=== PATIENT | female | born 1990 | race Caucasian/White ===

== ENCOUNTER 2019-02-24 16:00 | Outpatient (RCR) | payer OTHER, SELFPAY ==
--- NOTE | 2019-01-27 17:42 | HP.PTEVAL_ITS ---
Patient's Visit Information BOZENA FLORES is a 28 year old F referred to Physical Therapy by Enzo Rolle with a diagnosis of ACHILLES TENDONITIS OF LOWER EXTREMITY,RADICULOPATHY OF LEG,SI JOINT PAIN. Date of Evaluation: 01/27/19 Physical Therapist: José Beyer, PT, Cert MDT, OCS - Visit Plan Frequency: 1x/Week Duration: 4 Weeks Plan: PT INTERVENTIONS ANR STRETCHING,CALF STRETCHING,MANUAL THERAPY STM/STICK/STM/STRENGTHENING AND MODLATIES NEEDED - Subjective Findings: This 28 y/o female presents to physical therapy with achilles tendonitis and radiculopathy . Patient had 2011 throwing hand granade felt pain/strain in left achilles . In past tried PT for achilles pain. Tried cortizone injection in past. August 2018 fell on right sidethen had symptoms right leg,then noticed tingling/parathesia left leg.Most recently,seen DR to try PT again thought maybe radiculopathy.Patient in [employer] on [employer] no running. Tender achilles. Currently,parathesia toes absent in legs. Aggravates standing ,walking ,standing ,unable to run. Bending/lifting/sitting no symptoms. Coughing/straining/sneezing -.Sleeping good. Bowel/bladder,.Patient uses fabricated orthotics. Symptoms affects ability in [employer],job demands. Condtion affects QOL and function. VOCATION: [employer]. SOCAIL: - Pain Left Ankle Pain Intensity (Out of 10): 3 Pain Intensity Range: 10 - Objective POSTURE: normal arch. GAIT: normal shahbaz. SYMMTRIES: align. PALPATION: unremarkable. MMT: quads/hams 4/5,ankle 4/5 ,hip flexion 4/5. LUMBAR ROM: flexion WFL,extension min loss side glides min loss increase tingling /parathesia in foot. FLEXABLITY: hams min loss ,G-S WFL - Special Tests L/S Slump test left side: Positive L/S Slump test right side: Negative L/S Left Straight Leg Raise: Positive L/S Right Straight Leg Raise: Negative Lumbar Standing: Flexion - Mechanical Response: No effect Lumbar Standing: Flexion - Symptoms During Testing: Increases Lumbar Standing: Flexion - Symptoms After Testing: Worse Comments:: parathesia/tingling Lumbar Standing: Extension - Symptoms During Testing: Increases Lumbar Standing: Extension - Symptoms After Testing: No worse Lumbar Lying: Flexion - Mechanical Response: No effect Lumbar Lying: Flexion - Symptoms During Testing: No effect Lumbar Lying: Flexion - Symptoms After Testing: No effect Lumbar Lying: Extension - Mechanical Response: No effect Lumbar Lying: Extension - Symptoms During Testing: Increases Lumbar Lying: Extension - Symptoms After Testing: No worse - Goals Goal 1:: Patient Independant with HEP. Goal Time Frame: 4-6 Weeks Goal 2:: Patient to decrease symptoms by 50 % or greater with parathesia/tingling and pain foot to improve function. Goal Time Frame: 4-6 Weeks Goal 3:: Patient improve walking standing with min symptoms with min limiations. Goal Time Frame: 4-6 Weeks Goal 4:: Patient to improve ability with job demands and housework tasks with min limiations. Goal Time Frame: 4-6 Weeks Goal 5:: Patient to improve LFES score by 5 points or greater. Goal Time Frame: 4-6 Weeks - Rehabilitation Potential Physical Therapy Diagnosis: This patient has multile complexity issue with achilles tendonitis along with + signs with ANR with parathesia/tingling in foot with diffential diagnosis of lumbar radiculopathy along with tender achilles with certain activity thus benifit froms skilled PT. Rehabilitation Potential: Good - Anticipated Interventions Patient/Client Instruction: Educate patient on: Condition, Plan of Care For the Purpose of:: To decrease pain, To increase ROM, To improve muscle performance and motor function, To increase tolerance to activity/condition/position, To improve performance and independence with ADL's, To improve health of tissue, To decrease soft tissue restriction, To reduce risk of recurrence, To improve ability to perform tasks related to life management Therapeutic Exercise to Include: Strength training, Postural training, Flexibilty training, Active ROM For the Purpose of:: To decrease pain, To increase ROM, To improve muscle performance and motor function, To increase tolerance to activity/condition/position, To improve ability of physical actions for home/community/work/leisure, To improve health of tissue, To decrease soft tissue restriction, To increase flexibility/ROM, To reduce risk of recurrence, To improve ability to perform tasks related to life management TENS: Yes IF ES: Yes Thermo therapy (hot pack): Yes Ultrasound (thermal/non thermal): Yes For the Purpose of:: To decrease pain, To decrease swelling/inflammation, To improve health of tissue, To decrease soft tissue restriction, To increase flexibility/ROM, To improve ability to perform tasks related to life management Thank you for the opportunity to evaluate your patient. For Medicare and Medicare HMO plans, please review the plan of care and approve it. It will need to be FAXED BACK to us at [phone] for Medicare purposes. For Medicare only, by signing this I certify the plan of care. Please let me know if there are questions or concerns regarding this plan of care. Physician Signature: Date:
--- NOTE | 2019-04-18 12:58 | HP.PTDCNRP_ITS ---
HP - Discharge Summary (1) - Patient Information BOZENA FLORES was seen in my office for initial evaluation on 01/27/19. The following Plan of Care was established for this patient: Initial Frequency: 1x/Week Initial Duration: 4 Weeks - Anticipated Interventions Patient/Client Instruction: Educate patient on: Condition, Plan of Care For the Purpose of:: To decrease pain, To increase ROM, To improve muscle perfo rmance and motor function, To increase tolerance to activity/condition/position, To improve performance and independence with ADL's, To improve health of tissue, To decrease soft tissue restriction, To reduce risk of recurrence, To improve ability to perform tasks related to life management Therapeutic Exercise to Include: Strength training, Postural training, Flexibilty training, Active ROM For the Purpose of:: To decrease pain, To increase ROM, To improve muscle performance and motor function, To increase tolerance to activity/condition/position, To improve ability of physical actions for home/community/work/leisure, To improve health of tissue, To decrease soft tissue restriction, To increase flexibility/ROM, To reduce risk of recurrence, To improve ability to perform tasks related to life management TENS: Yes IF ES: Yes Thermo therapy (hot pack): Yes Ultrasound (thermal/non thermal): Yes For the Purpose of:: To decrease pain, To decrease swelling/inflammation, To improve health of tissue, To decrease soft tissue restriction, To increase flexibility/ROM, To improve ability to perform tasks related to life management This patient was last seen in our office 02/24/19. Pertinent comments regarding their Physical therapy will appear below: Patient was seen for PT for ACHILLES TENONITIS AND LUMBAR RADICULOPATHY for flexablity,flossing,stretching/strengthening,keira ex's . Patient was d/c to [facility] for further diagnostics. At this point I will be discontinuing this patient from physical therapy. I would be happy to see this patient again in the future if found appropriate by the physician. Thank you! José Beyer, PT, Cert MDT, OCS
== END 2019-02-24 19:00 | disposition home or self-care (01) ==
LOC: PT 16:00
PROVIDERS: Family Provider Internal Medicine; PCP Internal Medicine
DX: M76.62 Achilles tendinitis, left leg (principal); M53.3 Sacrococcygeal disorders, not elsewhere classified
CPT/HCPCS: 97014; 97035; 97110; 97140; 97161; G0283

== ENCOUNTER 2019-05-15 17:25 | Outpatient (RCR) | payer OTHER, SELFPAY ==
--- NOTE | 2019-05-15 18:55 | HP.PTEVAL ---
Patient's Visit Information BOZENA FLORES is a 28 year old F referred to Physical Therapy by Chema Bustos MD with a diagnosis of Lumbar radiculitis. Date of Evaluation: 05/15/19 Physical Therapist: Alexander Wilder DPT, OCS, CSCS - Visit Plan Frequency: 1-2x /Week Duration: 4-6 Weeks Plan: weekly x 4-6 for. 1. Leia progression to hep with tingling in legs and LB ext progression. 2. Progress to strength and remodelling as appropriate. 3. ext mobs and LB ROM ext bias, may need to go aterally. - Subjective Findings: L foot hurts and goes numb adn tingles since October. Tingles constantly since October. has shooting pain in L leg intermittently. 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 Central 3/. 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 pain is better in am and worse after a day of driving. Drives 5 days a week. Spends day doing housework adn can do it. Avoids walking fast for fitness as she needs to do this for training. More relief with bending, coughing adn sneezing do not bother her. - Pain LBP Pain Intensity (Out of 10): 3 Pain Intensity Range: 3, 6 - Objective Waks normal but some stiffness ins pine. Trasnfers safe adn normal. + L SLR adn slump. reflexes 2/3 patella and achilles. Sensation normal to gross light touch in LE. Strength LE 4/5 except HS and abd L 4-. L/S ext min limted and pressure, flexion is slight pain, B SB Ok with some pain. PPU creates tingling adn pressure in LB during, NE after. stadning flexion. NE during, Creates LBP and minimizes extension. - Goals Goal 1:: No tingly in L foot for 1 week Goal Time Frame: 4-6 Weeks Goal 2:: I appropriate HEP to minimize future problems and show proper posture. Goal Time Frame: 4-6 Weeks Goal 3:: Full LB AROM without pain. Goal Time Frame: 4-6 Weeks Goal 4:: Work without increased leg symptoms. Goal Time Frame: 4-6 Weeks Goal 5:: Jog without symptoms. Goal Time Frame: 4-6 Weeks - Rehabilitation Potential Physical Therapy Diagnosis: Lumbar radiculaopathy. Rehabilitation Potential: Fair - Anticipated Interventions Patient/Client Instruction: Educate patient on: Condition, Plan of Care For the Purpose of:: To decrease pain, To increase tolerance to activity/condition/position, To improve ability of physical actions for home/community/work/leisure Therapeutic Exercise to Include: Strength training, Passive ROM, Active ROM, Dynamic Lumbar Stabilization, Leia Exercises For the Purpose of:: To decrease pain, To improve nutrient delivery to tissue, To improve muscle performance and motor function, To increase tolerance to activity/condition/position, To improve ability of physical actions for home/community/work/leisure Manual Therapy Techniques to Include: Mobilization For the Purpose of:: To increase ROM Thank you for the opportunity to evaluate your patient. For Medicare and Medicare HMO plans, please review the plan of care and approve it. It will need to be FAXED BACK to us at [phone] for Medicare purposes. For Medicare only, by signing this I certify the plan of care. Please let me know if there are questions or concerns regarding this plan of care. Physician Signature: Date:
--- NOTE | 2019-07-17 16:34 | HP.PTDCNRP_ITS ---
HP - Discharge Summary (1) - Patient Information BOZENA FLORES was seen in my office for initial evaluation on 05/15/19. The following Plan of Care was established for this patient: Initial Frequency: 1-2x /Week Initial Duration: 4-6 Weeks - Anticipated Interventions Patient/Client Instruction: Educate patient on: Condition, Plan of Care For the Purpose of:: To decrease pain, To increase tolerance to activity/c ondition/position, To improve ability of physical actions for home/community/work/leisure Therapeutic Exercise to Include: Strength training, Passive ROM, Active ROM, Dynamic Lumbar Stabilization, Edmundo Exercises For the Purpose of:: To decrease pain, To improve nutrient delivery to tissue, To improve muscle performance and motor function, To increase tolerance to activity/condition/position, To improve ability of physical actions for home/community/work/leisure Manual Therapy Techniques to Include: Mobilization For the Purpose of:: To increase ROM This patient was last seen in our office 05/15/19. Pertinent comments regarding their Physical therapy will appear below: Pt seen one visit of POC and was given HEP. She did not show up for any further visits in her POC. At this point, it has been over two months adn I iwll discontinue due to nonattendance. At this point I will be discontinuing this patient from physical therapy. I would be happy to see this patient again in the future if found appropriate by the physician. Thank you! Alexander Wilder, DPT, OCS, CSCS
== END 2019-05-15 19:00 | disposition home or self-care (01) ==
LOC: PT 17:25
PROVIDERS: Family Provider Internal Medicine; PCP Internal Medicine; Referring Provider Family Medicine; Visit Provider Family Medicine
DX: M54.16 Radiculopathy, lumbar region (principal)
CPT/HCPCS: 97110; 97162